=== PATIENT | female | born 1985 | race Hispanic/Latino ===

== ENCOUNTER 2017-06-08 16:14 | Emergency (ER) | payer MEDICAID, OTHER ==
[2017-06-08 16:18] VITALS: BMI 20.8
[2017-06-08 16:23] VITALS: TEMP 97.6
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
[2017-06-08 18:27] VITALS: BP 129/76; PULSE 97; RESP 18; O2SAT 99
== END 2017-06-08 19:20 | disposition home or self-care (01) ==
LOC: ED 16:14 → MERGE 16:14 → ED 19:20
DX: S00.33XA Contusion of nose, initial encounter (principal); V49.9XXA Car occupant (driver) (passenger) injured in unspecified traffic accident, initial encounter